=== PATIENT | male | born 1990 | race Two or more races ===

== ENCOUNTER 2016-11-23 15:21 | Emergency (ER) | payer SELFPAY ==
[~2016-11-23] VITALS: Ht 170.2 cm; Wt 53.1 kg
== END 2016-11-23 17:13 | disposition home or self-care (01) ==
LOC: CED 15:21 → CFTX 15:21
DX: J02.9 Acute pharyngitis, unspecified (principal); J06.9 Acute upper respiratory infection, unspecified
CPT/HCPCS: 87651; 99283